=== PATIENT | female | born 1955 | race Caucasian/White ===

== ENCOUNTER 2023-09-25 11:03 | Outpatient (CLI) | payer MEDICARE, BC | END 2023-09-25 11:04 | disposition home or self-care (01) | LOC: CSHMAMMO 11:03 | PROVIDERS: ATTEND Family Medicine | DX: Z13.820 Encounter for screening for osteoporosis (principal); M85.89 Other specified disorders of bone density and structure, multiple sites | CPT/HCPCS: 77080 ==

== ENCOUNTER 2023-11-24 05:46 | Emergency (ER) | payer MEDICARE ==
[2023-11-24] MEDS ORDERED: Morphine 4 MG/ML VIAL ONE ×2 (06:40→07:28)
[2023-11-24 06:43] LABS: #Basophils 0.1 10x3/uL (0.0-0.2); #Eosinphils 0.2 10x3/uL (0.0-0.5); #Monocytes 0.8 10x3/uL (0.0-1.1); #Neutrophils 6.6 10x3/uL (1.5-8.4); %Basophils 0.8 % (0.0-2.0); %Eosinophils 1.6 % (0.0-6.0); %Lymphocytes 19.7 % (18.0-47.0); %Monocytes 8.5 % (0.0-10.0); Hematocrit 47.6 % (34.9-44.5); Hemoglobin 15.9 g/dL (12.0-15.5); Mean Corpuscular HGB CONC 33.4 g/dL (32.0-36.0); Mean Corpuscular Hemoglobin 29.7 pg (27.0-33.0); Mean Corpuscular Volume 88.8 fl (81.6-98.3); Mean Platelet Volume 10.4 fl (7.4-10.4); Platelet Count 347 10x3/uL (150-450); RBC Distribution Width 12.5 % (11.5-14.5); Red Blood Cell (RBC) Count 5.36 10x6/uL (3.90-5.03); White Blood Cell (WBC) Count 9.5 10x3/uL (3.5-10.5)
[2023-11-24 06:59] LABS: ALT (SGPT) 23 U/L (8-55); AST (SGOT) 22 U/L (5-34); Albumin 4.7 g/dL (3.4-4.8); Alkaline Phosphatase 75 U/L (40-110); Anion Gap 18 mmol/L (10-20); BUN (Urea Nitrogen) 13 mg/dL (9.8-20.1); Bilirubin, Total 0.5 mg/dL (0.2-1.2); Calc. Creatinine Clearance 0 mL/min (70-130); Calcium 9.8 mg/dL (7.8-10.44); Carbon Dioxide 21 mmol/L (23-31); Chloride 106 mmol/L (98-107); Estimated GFR 79; Glucose 116 mg/dL (80-115); Potassium 4.4 mmol/L (3.5-5.1); Protein, Total 7.7 g/dL (5.8-8.1); Sodium 141 mmol/L (136-145)
[2023-11-24 07:01] LABS: Troponin I 0.012 ng/mL (< 0.028)
[2023-11-24] MEDS ORDERED: Aspirin 325 MG TAB ONE (07:16)
[2023-11-24] MEDS ORDERED: Nitroglycerin 2% Ointment 1 INCH/1 GM Packet ONE (07:20)
[2023-11-24] MEDS ORDERED: Pantoprazole 40 MG VIAL ONE (08:07)
[2023-11-24] MEDS ORDERED: Ketorolac Tromethamine 30 MG (1 mL) VIAL ONE (08:07)
[2023-11-24 09:42] LABS: Troponin I Less than 0.010 ng/mL (< 0.028)
[2023-11-24] MEDS ORDERED: Iopamidol 370 76% 100 ML VIAL ONE (14:09)
== END 2023-11-24 09:52 | disposition home or self-care (01) ==
LOC: CSHERS 05:46
DX: K80.20 Calculus of gallbladder without cholecystitis without obstruction (principal); R07.9 Chest pain, unspecified; I10 Essential (primary) hypertension; Z79.899 Other long term (current) drug therapy; Z79.82 Long term (current) use of aspirin
CPT/HCPCS: 36415; 71045; 71275; 74174; 76705; 80053; 83690; 83880; 84484; 85025; 93005; 96374; 96375; 96376; C9113; J1885; J2270; Q9967

== ENCOUNTER 2023-12-09 09:55 | Outpatient (CLI) | payer MEDICARE ==
[2023-12-09 11:45] LABS: Hematocrit 47.3 % (34.9-44.5); Hemoglobin 15.6 g/dL (12.0-15.5); Mean Corpuscular Hemoglobin 29.3 pg (27.0-33.0); Mean Corpuscular Volume 88.7 fl (81.6-98.3); Mean Platelet Volume 10.6 fl (7.4-10.4); Platelet Count 306 10x3/uL (150-450); RBC Distribution Width 12.7 % (11.5-14.5); Red Blood Cell (RBC) Count 5.33 10x6/uL (3.90-5.03); White Blood Cell (WBC) Count 6.6 10x3/uL (3.5-10.5)
== END 2023-12-09 09:56 | disposition home or self-care (01) ==
LOC: CSHLAB 09:55
PROVIDERS: ATTEND Surgery
DX: Z01.818 Encounter for other preprocedural examination (principal); K42.0 Umbilical hernia with obstruction, without gangrene
CPT/HCPCS: 85027; 93005; 93010

== ENCOUNTER 2023-12-12 10:37 | Day surgery (SDC) | payer MEDICARE ==
[2023-12-09 11:07] VITALS: BMI 41.3
[2023-12-12] MEDS ORDERED: Indocyanine Green 25 MG/10 ML VIAL ONE (11:08)
[2023-12-12] MEDS ORDERED: Rocuronium Bromide 10 MG/ML (10ML VIAL) ONE (12:27)
[2023-12-12] MEDS ORDERED: Lidocaine 2% PF 5 ML VIAL ONE (12:27)
[2023-12-12] MEDS ORDERED: Dexamethasone 4 mg/ml Vial ONE (12:27)
[2023-12-12] MEDS ORDERED: Fentanyl 250 MCG/5 ML VIAL ONE (12:28)
[2023-12-12] MEDS ORDERED: Midazolam HCl 2 mg/2 ml Vial ONE (12:28)
[2023-12-12] MEDS ORDERED: PROPOFOL 20 ML ONE ×2 (12:28→14:02)
[2023-12-12] MEDS ORDERED: Bupivacaine PF 0.5% 30 ML VIAL ONE (12:42)
[2023-12-12] MEDS ORDERED: CEFAZOLIN 2 GM VIAL ONE (12:42)
[2023-12-12] MEDS ORDERED: EPINEPHrine 1 MG/ML VIAL ONE (12:42)
[2023-12-12] MEDS ORDERED: SUGAMMADEX SODIUM 200 MG/2 ML VIAL ONE (13:24)
[2023-12-12] MEDS ORDERED: PHENYLEPHRINE-NS 100 MCG/ML 10 ML SYRINGE ONE (14:09)
[2023-12-12] MEDS ORDERED: fentaNYL 50 mcg/mL 1 mL Vial ONE ×2 (14:49→15:00)
[2023-12-12] MEDS ORDERED: Acetaminophen 325 MG TAB PO PRN (15:06)
[2023-12-12] MEDS ORDERED: HYDROcodone/Acetaminophen 5/325 mg Tablet PO PRN ×2 (15:06)
[2023-12-12] MEDS ORDERED: HYDROcodone/Acetaminophen 5/325 mg Tablet ONE (15:31)
== END 2023-12-12 16:50 | disposition home or self-care (01) ==
LOC: CSHSDC 10:37
PROVIDERS: ATTEND Surgery
PROC: 0FT44ZZ Resection of Gallbladder, Percutaneous Endoscopic Approach (ICD-10-PCS; principal; 2023-12-12)
PROC: 0WUF0JZ Supplement Abdominal Wall with Synthetic Substitute, Open Approach (ICD-10-PCS; 2023-12-12)
DX: K80.10 Calculus of gallbladder with chronic cholecystitis without obstruction (principal); K42.0 Umbilical hernia with obstruction, without gangrene; I10 Essential (primary) hypertension; K21.9 Gastro-esophageal reflux disease without esophagitis; E66.01 Morbid (severe) obesity due to excess calories; Z68.41 Body mass index [BMI] 40.0-44.9, adult; Z79.899 Other long term (current) drug therapy
CPT/HCPCS: 47562; 49594; A6258; C1781; C1889; J0171; J3010; 88304; J0665; J1100; J2001; J2250; J2704

== ENCOUNTER 2024-07-28 14:33 | Observation (INO) | payer MEDICARE ==
[2024-07-28 15:30] LABS: ALT (SGPT) 35 U/L (8-55); AST (SGOT) 33 U/L (5-34); Albumin 3.9 g/dL (3.4-4.8); Alkaline Phosphatase 87 U/L (40-110); Anion Gap 17 mmol/L (10-20); BUN (Urea Nitrogen) 14 mg/dL (9.8-20.1); Bilirubin, Total 0.9 mg/dL (0.2-1.2); Calc. Creatinine Clearance 0 mL/min (70-130); Calcium 9.7 mg/dL (7.8-10.44); Carbon Dioxide 22 mmol/L (23-31); Chloride 108 mmol/L (98-107); Estimated GFR 88; Globulin 3.2 g/dL (2.4-3.5); Glucose 122 mg/dL (80-115); Potassium 4.1 mmol/L (3.5-5.1); Protein, Total 7.1 g/dL (5.8-8.1); Sodium 143 mmol/L (136-145)
[2024-07-28 15:37] LABS: #Basophils 0.04 10x3/uL (0.0-0.2); #Eosinophils 0.02 10x3/uL (0.0-0.5); #Monocytes 0.54 10x3/uL (0.0-1.1); #Neutrophils 11.02 10x3/uL (1.5-8.4); %Basophils 0.3 % (0.0-2.0); %Eosinophils 0.2 % (0.0-6.0); %Lymphocytes 1.5 % (18.0-47.0); %Monocytes 4.6 % (0.0-10.0); %Neutrophils 93.1 % (40.0-75.0); Hemoglobin 16.1 g/dL (12.0-15.5); Mean Corpuscular HGB CONC 31.6 g/dL (32.0-36.0); Mean Corpuscular Hemoglobin 28.1 pg (27.0-33.0); Platelet Count 264 10x3/uL (150-450); RBC Distribution Width 13.2 % (11.5-14.5); Red Blood Cell (RBC) Count 5.73 10x6/uL (3.90-5.03); White Blood Cell (WBC) Count 11.8 10x3/uL (3.5-10.5)
[2024-07-28] MEDS ORDERED: Ondansetron PF 4 MG/2 ML Vial ONE (15:54)
[2024-07-28] MEDS ORDERED: Acetaminophen 500 MG TAB ONE (17:45)
[2024-07-28] MEDS ORDERED: Ondansetron PF 4 MG/2 ML Vial IVP PRN (18:59)
[2024-07-28] MEDS ORDERED: Ondansetron ODT 4 MG TAB PO PRN (18:59)
[2024-07-28] MEDS ORDERED: Calcium Carbonate 500 MG ChewTAB PO PRN (18:59)
[2024-07-28] MEDS ORDERED: traMADol HCl 50 MG TAB PO PRN (18:59)
[2024-07-28 20:19] VITALS: BMI 34.2
[2024-07-28 20:52] LABS: Lipase 40 U/L (8-78); Magnesium 1.7 mg/dL (1.6-2.6)
[2024-07-28] MEDS: Lactated Ringer's 1,000 ML IV SCH (20:55)
[2024-07-29] MEDS ORDERED: Melatonin 3 MG TAB PO PRN (01:21)
[2024-07-29] MEDS: Melatonin 3 MG TAB PO SCH (01:46)
[2024-07-29] MEDS: Acetaminophen 325 MG TAB PO PRN (04:16)
[2024-07-29 07:04] LABS: Anion Gap 14 mmol/L (10-20); BUN (Urea Nitrogen) 10 mg/dL (9.8-20.1); Calc. Creatinine Clearance 124 mL/min (70-130); Calcium 8.2 mg/dL (7.8-10.44); Carbon Dioxide 20 mmol/L (23-31); Chloride 112 mmol/L (98-107); Estimated GFR 97; Glucose 104 mg/dL (80-115); Potassium 3.6 mmol/L (3.5-5.1); Sodium 142 mmol/L (136-145)
[2024-07-29 11:03] VITALS: BP 133/49; TEMP 97.7
== END 2024-07-29 12:44 | disposition home or self-care (01) ==
LOC: CSHERS 14:33 → CSHTELE 18:10
PROVIDERS: ADMIT Family Medicine; ATTEND Physician Assistant
DX: R55 Syncope and collapse (principal); I10 Essential (primary) hypertension; R11.2 Nausea with vomiting, unspecified; R19.7 Diarrhea, unspecified; G35 Multiple sclerosis; Z79.82 Long term (current) use of aspirin; Z79.899 Other long term (current) drug therapy
CPT/HCPCS: 70450; 72125; 80048; 80053; 83605; 83690; 83735; 84484; 85025; 93005; 96361; 96374; 99285; G0378 ×3; J2405; J7120 ×2; 36415; 93010

== ENCOUNTER 2024-08-05 10:40 | Outpatient (CLI) | payer MEDICARE | END 2024-08-05 10:41 | disposition home or self-care (01) | LOC: CSHMAMMO 10:40 | PROVIDERS: ATTEND Family Medicine | DX: Z12.31 Encounter for screening mammogram for malignant neoplasm of breast (principal) | CPT/HCPCS: 77063; 77067 ==

== ENCOUNTER 2024-12-01 15:38 | Outpatient (CLI) | payer MEDICARE | END 2024-12-01 15:39 | disposition home or self-care (01) | LOC: CSHULT 15:38 | PROVIDERS: ATTEND Family Medicine | DX: R31.0 Gross hematuria (principal); N28.9 Disorder of kidney and ureter, unspecified | CPT/HCPCS: 76770 ==

== ENCOUNTER 2025-08-26 10:38 | Outpatient (CLI) | payer MEDICARE | END 2025-08-26 10:39 | disposition home or self-care (01) | LOC: CSHMAMMO 10:38 | PROVIDERS: ATTEND Family Medicine | DX: Z12.31 Encounter for screening mammogram for malignant neoplasm of breast (principal) | CPT/HCPCS: 77063; 77067 ==